=== PATIENT | male | born 1995 | race Caucasian/White ===

== ENCOUNTER 2016-09-28 11:20 | Emergency (ER) | payer OTHER ==
[2016-09-28 11:28] VITALS: BP 144/83; PULSE 69; RESP 14; TEMP 97.9; O2SAT 98
--- NOTE | 2016-09-28 12:58 | EDPHY ---
H & P Time Seen by Provider: 09/28/16 11:37 HPI/ROS: CHIEF COMPLAINT: Facial laceration, left finger injury HISTORY OF PRESENT ILLNESS: 21-year-old male presents to the emergency department by private vehicle with laceration to the anterior aspect of the left ear. Patient was ice climbing just prior to arrival and was caring his equipment he slipped on some ice and fell and 1 of his ice picks landed on the ground when the patient fell he hit the left side of his head on the ice pack he did not lose consciousness. He denies a headache. No hearing loss. No visual complaints. No neck or back pain. No chest pain or difficulty breathing. Tetanus shot is up-to-date. Also complaining of ongoing pain in his left 3rd finger. He thinks that he may have jammed his finger when he fell earlier today. He is right-hand dominant. He has had problems with the left 3rd finger intermittently over last several months. REVIEW OF SYSTEMS: Constitutional: No fever, no chills. Eyes: No double or blurry vision. ENT: No sore throat. Respiratory: No cough, no shortness of breath. Cardiac: No chest pain. Gastrointestinal: No abdominal pain, vomiting or diarrhea. Genitourinary: No dysuria. Musculoskeletal: No neck or back pain. Skin: No rashes. Neurological: No headache. Past Medical/Surgical History: Orthopedic injuries Social History: Single, [employer] student Smoking Status: Never smoked Physical Exam: General Appearance: Alert, no distress. Eyes: Pupils equal and round. Extraocular motions are all intact. ENT: Mouth: Mucous membranes moist. No hemotympanum. No evidence of retained foreign body. Respiratory: No wheezing, rhonchi, or rales, lungs are clear to auscultation. Cardiovascular: Regular rate and rhythm. Gastrointestinal: Abdomen is soft and nontender, no masses, no rebound or guarding, bowel sounds normal. Neurological: Alert and oriented x 3, cranial nerves II through XII grossly intact Skin: 1 cm laceration to the left pre-auricular area of the ear. No active bleeding noted. No evidence of retained foreign body. No injury to the cartilage. Warm and dry, no rashes. Musculoskeletal: Nontender to palpate along the cervical, thoracic or lumbar spine. Neck is supple. Extremities: Full range of motion and no peripheral edema. Pain with palpation of the proximal phalanx of the left 3rd finger. No rotational deformities noted. No puncture wound, abrasion or ecchymosis noted. Psychiatric: Patient is oriented X 3, there is no agitation. Constitutional: Initial Vital Signs Temperature (C) 36.6 C 09/28/16 11:26 Heart Rate 69 09/28/16 11:26 Respiratory Rate 14 09/28/16 11:26 Blood Pressure 144/83 H 09/28/16 11:26 O2 Sat (%) 98 09/28/16 11:26 O2 Delivery Mode Room Air Allergies/Adverse Reactions: No Known Allergies Allergy (Unverified 01/18/15 11:38) Home Medications: Medication Instructions Recorded NK [No Known Home Meds] 01/18/15 Medical Decision Making - Diagnostics Imaging: X-rays of the left 3rd finger revealed no fractures. This is reviewed by myself the PAC system as well as by the radiologist. ED Course/Re-evaluation: 21-year-old male with laceration to the left ear. See procedure note. I discussed with the patient the pros and cons of CT imaging of the brain including radiation exposure the patient declined. X-rays of the left finger reveal no fractures. Patient was given orthopedic referral. Differential Diagnosis: Head injury including but not limited to concussion, skull fracture, intraparenchymal contusion, subarachnoid, subdural and epidural hematoma. Departure - Departure Disposition: Home, Routine, Self-Care Clinical Impression: Laceration of right ear Qualifiers: Qualifier Code: (S01.311A) Laceration without foreign body of right ear, initial encounter Contusion of left middle finger Qualifiers: Qualifier Code: (S60.032A) Contusion of left middle finger without damage to nail, initial encounter Condition: Good Instructions: Laceration (ED), Care For Your Stitches (ED), Acute Wound Care ( ED), Contusion in Adults (ED) Additional Instructions: Wound Care Follow-Up: Removal of sutures in 5 days. Suture removal is complimentary in uncomplicated cases. Infection or abnormal findings would require reevaluation by the MD. In that case, you may be billed. Ibuprofen 600 mg every 8 hours as needed for pain. Return if he notices any signs or symptoms of infection or any other concerns. Referrals: Ye Darden MD [Medical Doctor] - 2-3 days, if not improved (Hand surgeon on- call)
--- NOTE | 2016-09-28 13:15 | DX ---
Left Third Finger, Three Views History: Pain. Findings: No fracture deformity , malalignment or arthritis is identified. Mineralization is normal . There are no erosions or obvious joint effusions. There is some mild localized focal soft tissue sw elling at the level of the second and third PIP joints. Impression: Possible soft tissue "Heberden's nodes" involving the PIP joint. Otherwise negative.
== END 2016-09-28 13:24 | disposition home or self-care (01) ==
PROC: 09Q1XZZ Repair Left External Ear, External Approach (ICD-10-PCS; principal; 2016-09-28)
DX: S01.312A Laceration without foreign body of left ear, initial encounter (principal); S60.032A Contusion of left middle finger without damage to nail, initial encounter; W00.0XXA Fall on same level due to ice and snow, initial encounter; Y92.89 Other specified places as the place of occurrence of the external cause; Y93.39 Activity, other involving climbing, rappelling and jumping off